=== PATIENT | female | born 1945 | race Caucasian/White ===

== ENCOUNTER → 2016-11-19 | Outpatient (CLI) | payer MEDICARE, OTHER ==
[~2016-11-19] MED LIST: ACIPHEX20 MG PO; ASPIRIN E.C. 8181 MG PO; BENICAR HCT 12.1 TAB PO; DIOVAN HCT 12.51 TAB PO; FOLIC ACID 40400 MCG PO; IRON325 M1 PO; LIPITOR20 MG PO; OYSCO 500500 M1 PO; PRED FORTE 1 ML1 ML OU; VITAMIN C PO; VITAMIN C500 MG PO; VITAMIN D1000 IU PO
[2016-11-19 13:58] LABS: HIV 1/2 Antibodies Non-Reactive; HIV-1p24 Antigen Non-Reactive
== END ==
LOC: COL.LAB 12:44
PROVIDERS: Orthopaedic Surgery
DX: Z01.812 Encounter for preprocedural laboratory examination (principal); M25.861 Other specified joint disorders, right knee

== ENCOUNTER 2019-07-17 10:45 | Outpatient (RCR) | payer MEDICARE, OTHER | END 2019-08-29 | disposition home or self-care (01) | LOC: WSST | DX: R49.0 Dysphonia (principal) ==